=== PATIENT | male | born 1995 | race Caucasian/White ===

== ENCOUNTER 2017-12-09 20:58 | Emergency (ER) | payer SELFPAY ==
[2017-12-09] MEDS ORDERED: Diphtheria,Pertussis(Acell),Tetanus Vaccine 0.5 ML Syringe IM ONE (21:21)
--- NOTE | 2017-12-09 21:21 | EDM.PDOC ---
ED HPI GENERAL MEDICAL PROBLEM - General Chief Complaint: General Stated Complaint: CUT LT HAND Time Seen by Provider: 12/09/17 21:17 Source of Information: Reports: Patient History Limitations: Reports: No Limitations - History of Present Illness INITIAL COMMENTS - FREE TEXT/NARRATIVE: HISTORY AND PHYSICAL: History of present illness: Abdirahman is a 22-year-old male here with cut to his right hand. He states he scraped his hand on a sandra wheel well 2 days ago. He reports a co-working got him "freaked out" about tetanus because he hasn't had this in over 10 years. He denies any fevers, chills and no erythema, draining, pain at the site of the cut. He is otherwise in his usual states of macarena. Review of systems: As per history of present illness and below otherwise all systems reviewed and negative. Past medical history: As per history of present illness and as reviewed below otherwise noncontributory. Surgical history: As per history of present illness and as reviewed below otherwise noncontributory. Social history: No reported history of drug or alcohol abuse. Family history: As per history of present illness and as reviewed below otherwise noncontributory. Physical exam: General: patient sitting comfortably in no acute distress HEENT: Atraumatic, normocephalic, pupils reactive, negative for conjunctival pallor or scleral icterus Lungs: Clear to auscultation, breath sounds equal bilaterally Heart: S1S2, regular, negative for clicks, rubs Skin: There is a 1cm well-healed abrasion to the left dorsal hand without erythema or purulent drainage. Extremities: Atraumatic. Neurovascular unremarkable. Neuro: Awake, alert, oriented. Cranial nerves II through XII unremarkable. Cerebellum unremarkable. Motor and sensory unremarkable throughout. Exam nonfocal. Notes: Diagnostics: [] Therapeutics: Tdap Impression: Abrasion Plan: #1 Follow up with primary care provider #2 Return to ED as needed as discussed Definitive disposition and diagnosis as appropriate pending reevaluation and review of above. - Related Data Allergies Allergy/AdvReac Type Severity Reaction Status Date / Time No Known Allergies Allergy Verified 12/09/17 21:15 Home Meds: Home Meds . [No Known Home Meds] 12/09/17 [History] Past Medical History - Past Health History Medical/Surgical History: Denies Medical/Surgical History Social & Family History - Tobacco Use Smoking Status *Q: Current Every Day Smoker Years of Tobacco use: 1 Packs/Tins Daily: 1 ED ROS GENERAL - Review of Systems Review Of Systems: ROS reveals no pertinent complaints other than HPI. ED EXAM, GENERAL - Physical Exam Exam: See Below (see dictation) Course - Vital Signs Last Recorded V/S: Last Vital Signs Temp 35.7 C 12/09/17 21:12 Pulse 79 12/09/17 21:12 Resp 16 12/09/17 21:12 BP 142/85 H 12/09/17 21:12 Pulse Ox 97 12/09/17 21:12 Departure - Departure Time of Disposition: 21:20 Disposition: Home, Self-Care 01 Condition: Good Clinical Impression: Abrasion - Discharge Information Referrals: PCP,None [Primary Care Provider] - Additional Instructions: The following information is given to patients seen in the emergency department who are being discharged to home. This information is to outline your options for follow-up care. We provide all patients seen in our emergency department with a follow-up referral. The need for follow-up, as well as the timing and circumstances, are variable depending upon the specifics of your emergency department visit. If you don't have a primary care physician on staff, we will provide you with a referral. We always advise you to contact your personal physician following an emergency department visit to inform them of the circumstance of the visit and for follow-up with them and/or the need for any referrals to a consulting specialist. The emergency department will also refer you to a specialist when appropriate. This referral assures that you have the opportunity for follow-up care with a specialist. All of these measure are taken in an effort to provide you with optimal care, which includes your follow-up. Under all circumstances we always encourage you to contact your private physician who remains a resource for coordinating your care. When calling for follow-up care, please make the office aware that this follow-up is from your recent emergency room visit. If for any reason you are refused follow-up, please contact the [facility] Emergency Department at and asked to speak to the emergency department charge nurse. [facility] [address] [place] [id number] #1 Follow up with primary care provider #2 Return to ED as needed as discussed
== END 2017-12-09 21:53 | disposition home or self-care (01) ==
LOC: MW.ED 20:58
DX: S60.512A Abrasion of left hand, initial encounter (principal); F17.210 Nicotine dependence, cigarettes, uncomplicated; Z23 Encounter for immunization; X58.XXXA Exposure to other specified factors, initial encounter
CPT/HCPCS: 90471; 90715; 99283; 99283-25

== ENCOUNTER 2018-01-17 15:46 | Emergency (ER) | payer OTHER ==
--- NOTE | 2018-01-17 16:15 | EDM.PDOC ---
ED HPI GENERAL MEDICAL PROBLEM - General Chief Complaint: Cardiovascular Problem Stated Complaint: HEART RACING Time Seen by Provider: 01/17/18 15:52 - History of Present Illness INITIAL COMMENTS - FREE TEXT/NARRATIVE: HISTORY AND PHYSICAL: History of present illness: The patient is a 22-year-old with no stated medical problems who presented to the ED with a 2 week history of intermittent episodes of palpitations where he feels like his heart is going fast. He denies any associated pain with that such as chest pain abdominal pain and had pain and has no shortness of breath lightheadedness or syncope. Patient has been eating and drinking normally and says that he usually drinks energy drinks on a daily basis but when this started he stopped them and didn't see a difference. He did have an energy drink today. The patient also admits to use of an [id number]-[id number] herbal supplement called Kratom over the last one year which has both stimulant and euphoric effects. The patient says he occasionally drinks alcohol but he does not use any illicit drugs and he takes Benadryl at night to go to sleep because it is really hard to get to sleep. Patient in the ED currently says he doesn't feel like his heart is racing and he has no chest pain shortness of breath abdominal pain vomiting fevers chills or other systemic complaints. When he does get these tachycardic episodes he doesn't feel he needs or skipping and he has no associated symptoms as described above. He has not seen a provider for this in the past. The patient admits to me that he is "kind of a hypochondriac" and just wants to get checked. The patient states that when he uses the Kratom he feels like he is dehydrated and he gets a dry mouth. Patient also attributes all of these symptoms starting after we had a heat wave here and he was working outdoors when he was over 100 and he was not able to drink a lot of water. He admits he does not drink much water on a daily basis and sometimes he'll go all day without drinking water and then drink a lot of it. Review of systems: As per history of present illness and below otherwise all systems reviewed and negative. Past medical history: As per history of present illness and as reviewed below otherwise noncontributory. Surgical history: As per history of present illness and as reviewed below otherwise noncontributory. Social history: No reported history of drug or alcohol abuse. Family history: As per history of present illness and as reviewed below otherwise noncontributory. Physical exam: General: Well-developed well-nourished man who is nontoxic and vital signs were noted by me. His current heart rate in the ED is ranging anywhere from 70s to 90. HEENT: Atraumatic, normocephalic, pupils reactive, negative for conjunctival pallor or scleral icterus, mucous membranes moist, throat clear, neck supple, nontender, trachea midline. Lungs: Clear to auscultation, breath sounds equal bilaterally, chest nontender. Heart: S1S2, regular rate and rhythm no overt murmurs Abdomen: Soft, nondistended, nontender. Negative for masses or hepatosplenomegaly. NABS Pelvis: Deferred Genitourinary: Deferred. Rectal: Deferred. Extremities: Atraumatic, negative for cords or calf pain. Neurovascular unremarkable. Full range of motion without defects or deficits Neuro: Awake, alert, oriented. Cranial nerves II through XII unremarkable. Cerebellum unremarkable. Motor and sensory unremarkable throughout. Exam nonfocal. Diagnostics: EKG CBC CMP troponin TSH magnesium level UA UDS Therapeutics: desk monitor Patient is stable here in the ED and has had no tachycardia. He is aware of all testing results and need to follow-up and that he may need a 24-hour Holter if the symptoms continue. I've advised him to reduce and/or eliminate caffeine use and to eliminate his supplement that he has been taking, Kratom. Impression: Episodic palpitations stable Definitive disposition and diagnosis as appropriate pending reevaluation and review of above. - Related Data Allergies Allergy/AdvReac Type Severity Reaction Status Date / Time Penicillins Allergy Hives Verified 01/17/18 16:07 Home Meds: Home Meds . [No Known Home Meds] 12/09/17 [History] Past Medical History - Past Health History Medical/Surgical History: Denies Medical/Surgical History ED ROS GENERAL - Review of Systems Review Of Systems: ROS reveals no pertinent complaints other than HPI. ED EXAM, GENERAL - Physical Exam Exam: See Below (See dictation) Course - Vital Signs Last Recorded V/S: Last Vital Signs Temp 36.9 C 01/17/18 17:31 Pulse 64 01/17/18 17:31 Resp 12 01/17/18 17:31 BP 129/73 01/17/18 17:31 Pulse Ox 99 01/17/18 17:31 - Orders/Labs/Meds Orders: Active Orders 24 hr Category Date Time Status EKG Documentation Completion [RC] STAT Care 01/17/18 16:09 Active DRUG SCREEN, URINE [URCHEM] Stat Lab 01/17/18 16:30 Ordered UA W/MICROSCOPIC [URIN] Stat Lab 01/17/18 16:30 Ordered Labs: Laboratory Tests 01/17/18 01/17/18 01/17/18 Range/Units 16:18 16:18 16:30 WBC 5.14 (4.0-11.0) K/uL RBC 4.89 (4.50-5.90) M/uL Hgb 15.4 (13.0-17.0) g/dL Hct 44.5 (38.0-50.0) % MCV 91.0 (80.0-98.0) fL MCH 31.5 (27.0-32.0) pg MCHC 34.6 (31.0-37.0) g/dL RDW Std Deviation 43.0 (28.0-62.0) fl RDW Coeff of Parul 13 (11.0-15.0) % Plt Count 228 (150-400) K/uL MPV 9.70 (7.40-12.00) fL Neut % (Auto) 54.0 (48.0-80.0) % Lymph % (Auto) 33.7 (16.0-40.0) % Ocean % (Auto) 10.3 (0.0-15.0) % Eos % (Auto) 1.6 (0.0-7.0) % Baso % (Auto) 0.4 (0.0-1.5) % Neut # (Auto) 2.8 (1.4-5.7) K/uL Lymph # (Auto) 1.7 (0.6-2.4) K/uL Ocean # (Auto) 0.5 (0.0-0.8) K/uL Eos # (Auto) 0.1 (0.0-0.7) K/uL Baso # (Auto) 0.0 (0.0-0.1) K/uL Nucleated RBC % 0.0 /100WBC Nucleated RBCs # 0 K/uL Sodium 139 (136-148) mmol/L Potassium 4.1 (3.5-5.1) mmol/L Chloride 104 (98-107) mmol/L Carbon Dioxide 27.4 (21.0-32.0) mmol/L BUN 14 (7.0-18.0) mg/dL Creatinine 0.9 (0.8-1.3) mg/dL Est Cr Clr Drug Dosing 143.70 mL/min Estimated GFR (MDRD) > 60.0 ml/min Glucose 124 H (74-106) mg/dL Calcium 9.1 (8.5-10.1) mg/dL Magnesium 1.6 L (1.8-2.4) mg/dL Total Bilirubin 0.4 (0.2-1.0) mg/dL AST 15 (15-37) IU/L ALT 16 (14-63) IU/L Alkaline Phosphatase 82 (46-116) U/L Troponin I < 0.050 (0.000-0.056) ng/mL Total Protein 7.0 (6.4-8.2) g/dL Albumin 4.1 (3.4-5.0) g/dL Globulin 2.9 (2.0-3.5) g/dL Albumin/Globulin Ratio 1.4 (1.3-2.8) TSH 3rd Generation 1.42 (0.36-3.74) uIU/mL Urine Color YELLOW Urine Appearance CLEAR Urine pH 7.0 (5.0-8.0) Ur Specific [place] 1.010 (1.001-1.035) Urine Protein NEGATIVE (NEGATIVE) mg/dL Urine Glucose (UA) NEGATIVE (NEGATIVE) mg/dL Urine Ketones NEGATIVE (NEGATIVE) mg/dL Urine Occult Blood NEGATIVE (NEGATIVE) Urine Nitrite NEGATIVE (NEGATIVE) Urine Bilirubin NEGATIVE (NEGATIVE) Urine Urobilinogen 0.2 (<2.0) EU/dL Ur Leukocyte Esterase NEGATIVE (NEGATIVE) Urine RBC 0-1 (0-2/HPF) Urine WBC 0-1 (0-5/HPF) Ur Epithelial Cells RARE (NONE-FEW) Urine Bacteria RARE (NEGATIVE) Urine Opiates Screen (NEGATIVE) Ur Oxycodone Screen (NEGATIVE) Urine Methadone Screen (NEGATIVE) Ur Barbiturates Screen (NEGATIVE) Ur Phencyclidine Scrn (NEGATIVE) Ur Amphetamine Screen (NEGATIVE) U Methamphetamines Scrn (NEGATIVE) U Benzodiazepines Scrn (NEGATIVE) U Cocaine Metab Screen (NEGATIVE) U Marijuana (THC) Screen (NEGATIVE) 01/17/18 Range/Units 16:30 WBC (4.0-11.0) K/uL RBC (4.50-5.90) M/uL Hgb (13.0-17.0) g/dL Hct (38.0-50.0) % MCV (80.0-98.0) fL MCH (27.0-32.0) pg MCHC (31.0-37.0) g/dL RDW Std Deviation (28.0-62.0) fl RDW Coeff of Parul (11.0-15.0) % Plt Count (150-400) K/uL MPV (7.40-12.00) fL Neut % (Auto) (48.0-80.0) % Lymph % (Auto) (16.0-40.0) % Ocean % (Auto) (0.0-15.0) % Eos % (Auto) (0.0-7.0) % Baso % (Auto) (0.0-1.5) % Neut # (Auto) (1.4-5.7) K/uL Lymph # (Auto) (0.6-2.4) K/uL Ocean # (Auto) (0.0-0.8) K/uL Eos # (Auto) (0.0-0.7) K/uL Baso # (Auto) (0.0-0.1) K/uL Nucleated RBC % /100WBC Nucleated RBCs # K/uL Sodium (136-148) mmol/L Potassium (3.5-5.1) mmol/L Chloride (98-107) mmol/L Carbon Dioxide (21.0-32.0) mmol/L BUN (7.0-18.0) mg/dL Creatinine (0.8-1.3) mg/dL Est Cr Clr Drug Dosing mL/min Estimated GFR (MDRD) ml/min Glucose (74-106) mg/dL Calcium (8.5-10.1) mg/dL Magnesium (1.8-2.4) mg/dL Total Bilirubin (0.2-1.0) mg/dL AST (15-37) IU/L ALT (14-63) IU/L Alkaline Phosphatase (46-116) U/L Troponin I (0.000-0.056) ng/mL Total Protein (6.4-8.2) g/dL Albumin (3.4-5.0) g/dL Globulin (2.0-3.5) g/dL Albumin/Globulin Ratio (1.3-2.8) TSH 3rd Generation (0.36-3.74) uIU/mL Urine Color Urine Appearance Urine pH (5.0-8.0) Ur Specific [place] (1.001-1.035) Urine Protein (NEGATIVE) mg/dL Urine Glucose (UA) (NEGATIVE) mg/dL Urine Ketones (NEGATIVE) mg/dL Urine Occult Blood (NEGATIVE) Urine Nitrite (NEGATIVE) Urine Bilirubin (NEGATIVE) Urine Urobilinogen (<2.0) EU/dL Ur Leukocyte Esterase (NEGATIVE) Urine RBC (0-2/HPF) Urine WBC (0-5/HPF) Ur Epithelial Cells (NONE-FEW) Urine Bacteria (NEGATIVE) Urine Opiates Screen NEGATIVE (NEGATIVE) Ur Oxycodone Screen NEGATIVE (NEGATIVE) Urine Methadone Screen NEGATIVE (NEGATIVE) Ur Barbiturates Screen NEGATIVE (NEGATIVE) Ur Phencyclidine Scrn NEGATIVE (NEGATIVE) Ur Amphetamine Screen NEGATIVE (NEGATIVE) U Methamphetamines Scrn NEGATIVE (NEGATIVE) U Benzodiazepines Scrn NEGATIVE (NEGATIVE) U Cocaine Metab Screen NEGATIVE (NEGATIVE) U Marijuana (THC) Screen NEGATIVE (NEGATIVE) Departure - Departure Time of Disposition: 17:28 Disposition: Home, Self-Care 01 Condition: Good Clinical Impression: Heart palpitations Instructions: Palpitations, [id number] Referrals: PCP,None [Primary Care Provider] - Forms: ED Department Discharge Additional Instructions: The following information is given to patients seen in the emergency department who are being discharged to home. This information is to outline your options for follow-up care. We provide all patients seen in our emergency department with a follow-up referral. The need for follow-up, as well as the timing and circumstances, are variable depending upon the specifics of your emergency department visit. If you don't have a primary care physician on staff, we will provide you with a referral. We always advise you to contact your personal physician following an emergency department visit to inform them of the circumstance of the visit and for follow-up with them and/or the need for any referrals to a consulting specialist. The emergency department will also refer you to a specialist when appropriate. This referral assures that you have the opportunity for followup care with a specialist. All of these measure are taken in an effort to provide you with optimal care, which includes your followup. Under all circumstances we always encourage you to contact your private physician who remains a resource for coordinating your care. When calling for followup care, please make the office aware that this follow-up is from your recent emergency room visit. If for any reason you are refused follow-up, please contact the [facility] emergency department at and ask to speak to the emergency department charge nurse. [facility] Primary care- Internal Medicine and Family [address] [id number] Please try to reduce and/or eliminate caffeine use and stopped taking over-the- counter supplements as we discussed. Push hydration rest and please call and schedule a follow-up in our clinic as we discussed for further care and evaluation. Please start keeping a symptom journal and return to ER as needed and as discussed - My Orders Last 24 Hours: My Active Orders 01/17/18 16:09 EKG Documentation Completion [RC] STAT 01/17/18 16:30 DRUG SCREEN, URINE [URCHEM] Stat UA W/MICROSCOPIC [URIN] Stat - Assessment/Plan Last 24 Hours: My Active Orders 01/17/18 16:09 EKG Documentation Completion [RC] STAT 01/17/18 16:30 DRUG SCREEN, URINE [URCHEM] Stat UA W/MICROSCOPIC [URIN] Stat
[2018-01-17 17:03] LABS: CHLORIDE,CL 104 mmol/L (98-107); SODIUM,NA 139 mmol/L (136-148)
== END 2018-01-17 17:49 | disposition home or self-care (01) ==
LOC: MW.ED 15:46
DX: R00.2 Palpitations (principal); Z88.0 Allergy status to penicillin
CPT/HCPCS: 36415; 80053; 80305-QW; 81001; 83735; 84443; 84484; 85025; 93005; 99285-25